=== PATIENT | female | born 1965 | race Caucasian/White ===

== ENCOUNTER 2017-11-12 09:45 | Observation (INO) | payer MEDICARE, MEDICAID, SELFPAY ==
[2017-11-12] VITALS (11 sets, daily range): BP systolic 114–154; BP diastolic 59–95; PULSE 62–78; RESP 12–18; TEMP 35.8–36.6; O2SAT 94–98; BMI 31.5
--- NOTE | 2017-11-12 | THYROID_PTH ---
PATIENT: KENDALL VARMA LOC: MS2 U#:[id number] AGE/SX: 51/F [place]OM[place] [facility] [id number] RE11/12/[address]: Dr. 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 MEREDITH:jyoti 11/12/17 MICROSCOPIC DIAGNOSIS Right lobe thyroid, lobectomy: Adenomatoid colloid nodule. Chronic inflammation. Parathyroid tissue. See comment. MEREDITH:jyoti 11/13/17 COMMENT Immunohistochemistry ([id number]) supports the above diagnosis. The parathyroid tissue measures 0.4 x 0.3 cm, measured microscopically and appears to be cellular. Please make reference to previous cytology ([id number]), right thyroid nodule, FNA with diagnosis of suspicious for follicular neoplasm. MICROSCOPIC DESCRIPTION Slides are reviewed. GROSS DESCRIPTION Received fresh for frozen section diagnosis labeled with the patient's name is a specimen designated right lobe thyroid. The specimen consists of a thyroid lobectomy specimen weighing 8.5 gm and measuring 3.5 x 3.5 x 2 cm. No external parathyroid tissue is identified. The specimen is inked as follows: anterior surface ? black, posterior surface ? blue, isthmus margin ? yellow. Serial sections reveal a round, solid nodule in the inferior portion of the thyroid lobe measuring 1.5 cm in diameter. A section for nodule with surrounding tissue is submitted for frozen section diagnosis. The entire specimen is submitted in six cassettes as follows: 1 ? frozen section, 2-6 ? rest of the specimen (2 containing most superior portion and 6 containing most inferior portion). / SJ:jyoti 11/12/17 TC:5 CPT: 89681, 82021
--- NOTE | 2017-11-12 | IMM_PTH ---
PATIENT: KENDALL VARMA LOC: MS2 U#:[id number] AGE/SX: 51/F ROOM: [facility] [id number] RE11/12/[address]: Dr. 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 Localization is made via biotin free immunoperoxidase method. Appropriate controls are performed and reacted as expected. Results on target cell population are indicated in the following table: RESULTS: ANTIBODY / CLONE RESULT CD56 (123C3.D5) positive, diffuse CK19 (A53-B/A2.26) negative HBME1 (HBME-1) positive, focal (incomplete membranous staining) GAL3 (9C4) negative These tests were developed and their performance characteristics determined by [facility]. They may not have been cleared or approved by the U.S. Food and Drug Administration. The FDA has determined that such clearance or approval is not necessary. INTERPRETATION: Right thyroid lobe: Consistent with adenomatoid colloid nodule. SJ:jyoti 11/14/17
[2017-11-12] MEDS: Clindamycin 900 MG/50 ML BAG 75 MG IV (09:20)
--- NOTE | 2017-11-12 11:37 | OP.PN_ITS ---
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
--- NOTE | 2017-11-12 11:43 | OP.PCM_ITS ---
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 Post-Operative Diagnosis: follicular neoplasm, not cancer by frozen section Surgery/Procedure Performed:: right thyroid lobectomy Description of Surgical Findings:: right thyroid lobectomy with thyroid nodule, pathology frozen section reveals that follicular neoplasm - not cancer combination window installer: Harjit Forman Type of Anesthesia:: General Anesthesiologist: Era Parrish Specimen's removed: right thyroid lobe Estimated Blood Loss (mL): < 10 ml Fluids Replaced: 1100 ml RL Description of Procedure: After informed consent was obtained, the patient was brought to the Operating Room and placed in the supine position. Appropriate time out protocol was followed. She was then placed under GETA. US was brought to the OR and a US was done to assess margins of the thyroid gland for an appropriate incision to be made. The patient was then positioned with arms tucked and appropriate padding, with neck extension, and in the slightly reverse Trendelenburg position. The neck and upper chest were then prepped with a sterile surgical skin preparation and appropriate sterile surgical drapes were placed. The landmarks were identified and a low cervical collar incision was made with a 15 blade scalpel and carried down to the subcutaneous tissues using Bovie in the electrocautery mode. The platysma was divided along the incision and then flaps were created superiorly to the cricoid cartilage level and inferiorly to the sternal notch. The fascia overlying the strap muscles was then divided along the midline. The right thyroid gland was thus approached.. The plane between the thyroid gland anterior and the strap muscles posteriorly was then bluntly dissected. Dissection continued layer by layer to identify the inferior pole vessels of the right thyroid gland were identified. The inferior pole vessels were identified and there was a nodular density in this area that was felt to be the inferior parathyroid gland and therefore dissection was done to carefully avoid any injury to it. The vessels were ligated with ligaclips and then transected. Of note, there was inflammatory adhesions to it thyroid lobe. The middle thyroid vein was identified and also ligated with the Harmonic scalpel and then transected. The inferior pole was then bluntly dissected free of the surrounding investiture. The right lobe of the thyroid thus could be retracted medially. Attention was then directed to the superior pole of the thyroid gland. The superior pole vessels were then ligated adjacent to the thyroid lobe in order to prevent damage to the superior laryngeal nerve. The parathyroid gland was identified and care was taken to preserve the blood supply to the parathyroid gland. The thyroid gland was appearing ischemic and shrunk in size and the gland could be further retracted medially. The recurrent laryngeal nerve was identified. It was carefully avoided in further dissection of the thyroid gland. It is of note that the thyroid appeared to have slight inflammation consistent with thyroiditis type presentation. Also was noted that the surrounding tissues appeared to be more adherent to the thyroid gland than usual. Once the thyroid tissue was free from the attachments to the trachea with the recurrent laryngeal nerve protected and dissection continued. Once the gland was entirely freed, it was then forwarded to pathology. A frozen section revealed a follicular neoplasm, but no cancer. Therefore, closure began. Hemostasis was carefully controlled with electrocoagulation. Surgicel was used for hemostasis. The fascia of the strap muscles was then reapproximated along the midline using Vicryl suture. The platysma muscle was then reapproximated in a transverse fashion using interrupted 2-0 Vicryl suture. The skin incision was then reapproximated using 4 -0 Monocryl in a running subcuticular fashion. The drain was brought out through the middle portion of the incision and sutured to the skin using nylon suture. The skin closure was reinforced using Cavilon and Steri-Strips and a sterile OpSite dressing was applied. Prior to extubation, a glide scope examination was done. The vocal cords were noted to adduct bilaterally. The patient was then extubated. She was brought to the Recovery Room in stable condition. She was able to phonate the letter E without difficulty. Patient tolerated procedure well. - Complications none noted - Admit VTE Documentation VTE Present on Admission: Yes VTE Mechan Device Prophylaxis: SCD's
--- NOTE | 2017-11-12 16:45 | PCM.DC.GB ---
Discharge Diet: No Restrictions Discharge Activity: Return to Normal Activity, May not drive while taking narcotic pain medications. Call your doctor if your incision/area has: Continuous Slow Oozing, Foul Smelling Discharge Call your doctor if you observe: Fever of 101 or Higher Additional Dressing/Incision Instructions:: Leave dressing in place. May get wet in shower Allergies/Adverse Reactions: Allergies amitriptyline Adverse Reaction (Verified 11/05/17 12:56) Other SHAKES Medications to take at Discharge Doxylamine Succinate [Unisom] 25 mg PO QHS PRN 11/05/17 Naproxen Sodium [Aleve] 220 mg PO Q12H PRN PRN 11/05/17 Oxycodone [Oxyir] 5 mg PO Q6H PRN PRN 5 Days #20 tab 11/12/17 The following prescriptions were given: Oxycodone [Oxyir] 5 mg PO Q6H PRN PRN 5 Days #20 tab PRN Reason: Mod-Severe Pain (4-10/10) Primary Care Physician: Tara Morales NP-C [Primary Care Provider] - Please Follow Up With: Lakesha Fu MD - call When: to be seen next week, please call for date and time, thank you
[2017-11-12] MEDS: Lactated Ringers 1,000 ML 75 ML IV (17:08)
[2017-11-12] MEDS: 0.9% NaCl Peripheral Flush Adult/Peds IV (17:16)
[2017-11-12] MEDS: Ondansetron 4 MG/2 ML Vial IV (17:16)
[2017-11-12] MEDS: Morphine 4 MG/ML Syringe IV (17:16)
[2017-11-12] MEDS: HYDROcodone Bitartrate/Apap 5/325 Tablet PO (20:50)
[2017-11-13 02:45] VITALS: BP 129/82; PULSE 69; RESP 16; TEMP 36.7; O2SAT 94
[2017-11-13] MEDS: HYDROcodone Bitartrate/Apap 5/325 Tablet PO ×2 (02:50→08:38)
[2017-11-13] MEDS: Ondansetron 4 MG/2 ML Vial IV (02:53)
--- NOTE | 2017-11-13 06:52 | PCM.DC.GS ---
Discharge Diet: No Restrictions Discharge Activity: Return to Normal Activity, May not drive while taking narcotic pain medications. Call your doctor if your incision/area has: Continuous Slow Oozing, Foul Smelling Discharge Call your doctor if you observe: Fever of 101 or Higher Additional Dressing/Incision Instructions:: Leave dressing in place. May get wet in shower Allergies/Adverse Reactions: Allergies amitriptyline Adverse Reaction (Verified 11/05/17 12:56) Other SHAKES Medications to take at Discharge Doxylamine Succinate [Unisom] 25 mg PO QHS PRN 11/05/17 Naproxen Sodium [Aleve] 220 mg PO Q12H PRN PRN 11/05/17 Oxycodone [Oxyir] 5 mg PO Q6H PRN PRN 5 Days #20 tab 11/12/17 proMETHazine tablet [Phenergan tablet] 25 mg PO Q6H PRN PRN 1 Days #4 tab 11/13/17 The following prescriptions were given: Oxycodone [Oxyir] 5 mg PO Q6H PRN PRN 5 Days #20 tab PRN Reason: Mod-Severe Pain (4-10/10) proMETHazine tablet [Phenergan tablet] 25 mg PO Q6H PRN PRN 1 Days #4 tab PRN Reason: Nausea/Vomiting Primary Care Physician: Tara Morales NP-C [Primary Care Provider] - Please Follow Up With: Lakesha Fu MD - call When: to be seen next week, please call for date and time, thank you
[2017-11-13 06:59] LABS: Calcium,Total 9.3 mg/dL (8.5-10.1)
[2017-11-13 08:21] VITALS: BP 127/86; PULSE 65; RESP 18; TEMP 36.8; O2SAT 97
[2017-11-13 08:23] VITALS: BP 127/86; PULSE 64; RESP 18; TEMP 36.8; O2SAT 97
--- NOTE | 2017-11-15 11:48 | HP.PCM_ITS ---
History and Physical Date of Admission: 11/12/17 Edith Smith : 1965 ? REFERRING PHYSICIAN: Lakesha Fu MD ? CHIEF COMPLAINT: Thyroid nodule right - follicular neoplasm ? HPI: Edith is a 51 y/o WF who had presented previously with right thyroid nodule for which FNA findings 05/18/17 Follicular cells and H?rthle cells noted. Suspicious for follicular neoplasm. She was undergoing treatment for left breast cancer with chemotherapy and therefore thyroid surgery was postponed. I have counseled patient for right thyroid lobectomy, possible total thyroidectomy, patient states that she wants to discuss this with Dr. Hussain vale. ? PAST MEDICAL HISTORY Anxiety ? Breast cancer (HCC) 2017 Fibromyalgia ? Panic attacks ? Rheumatoid arthritis (HCC) ? PAST SURGICAL HISTORY BREAST LUMPECTOMY HX Left 2017 ? with sentinel lymph node biopsy PAST SURGICAL HISTORY OF ? ? ? Appendectomy at age 11 PAST SURGICAL HISTORY OF ? 03/07/1984 ? PAST SURGICAL HISTORY OF ? 03/04/1987 ? PAST SURGICAL HISTORY OF ? 03/04/1987 ? Tubal ligation PAST SURGICAL HISTORY OF ? ? ? Hysterectomy 2010 PAST SURGICAL HISTORY OF ? ? ? Hernia repair - 2015 THYROID RIGHT FINE NEEDLE ASPIRATION ? 05/2017 ? Current Outpatient Prescriptions: traMADol (ULTRAM) 50 mg tablet Take 1 tablet by mouth every 6 hours as needed for up to 7 days. traZODone (DESYREL) 50 mg tablet Take 100 mg by mouth daily at bedtime. levoFLOXacin (LEVAQUIN) 500 mg tablet Take 1 tablet by mouth once daily. promethazine (PHENERGAN) 25 mg tablet Take 1 tablet by mouth every 6 hours as needed. FOR NAUSEA potassium chloride ER (K-DUR, KLOR-CON) 20 mEq tablet Take 1 tablet by mouth once daily. ondansetron (ZOFRAN) 8 mg tablet Take 1 tablet by mouth every 8 hours as needed for Nausea/Vomiting. Indications: CANCER CHEMOTHERAPY-INDUCED NAUSEA AND VOMITING escitalopram oxalate (LEXAPRO) 10 mg tablet Take 10 mg by mouth once daily. ibuprofen (MOTRIN) 800 mg tablet Take 800 mg by mouth twice daily as needed. diphenhydrAMINE (BENADRYL) 25 mg capsule Take 25 mg by mouth as needed. ? ALLERGIES: Elavil [Amitriptyline Hcl] ? PERSONAL HISTORY: Social History Marital status: Single : Occupational History Occupation Employer Comment Disability RA Social History Main Topics Smoking status: Former Smoker Packs/day: 1.00 Years: 30.00 Types: Cigarettes Quit date: 12/01/2015 Smokeless status: Never Used Alcohol use: No Drug use: No Comment: daily FAMILY HISTORY Other [OTHER] Mother ? ? ? No known hx, not aware of where Mom is Diabetes Father ? Hypertension Father ? Stomach Cancer [OTHER] Father 77 Other [OTHER] Father ? ? ? Brain tumor Other [OTHER] Sister ? ? ? Brain tumor ? ? REVIEW OF SYSTEMS: General: The patient NOTES fatigue, denies weight loss, denies weight gain, denies feeling hot, and denies feelings of cold. Eyes: The patient denies glaucoma, denies eye injury/surgery, wears glasses or contacts. Ear/Nose/Throat: The patient denies allergies, NOTES hayfever, denies ear infections, and denies bloody noses. Cardiovascular: The patient denies chest pain, denies heart disease, denies high blood pressure,denies cardiac stent, denies prior heart attack, denies irregular heart beat, denies high cholesterol, denies poor circulation, denies heart failure, other cardiac issues, NOTES claudication, denies cold feet , denies peripheral arterial stent. Respiratory: The patient denies tuberculosis, denies pneumonia, denies frequent cough, denies pulmonary embolism, NOTES shortness of breath, and denies coughing up blood. Gastrointestinal: The patient denies difficulty swallowing, denies acid reflux, denies ulcers, denies vomiting, denies jaundice/hepatitis, denies gallbladder problems, denies black or tarry stools, denies hemorrhoids, denies bleeding from rectum, denies diverticulitis, NOTES constipation, denies diarrhea , denies loss of stool control, and denies hernias. Kidney/Bladder: The patient denies kidney stones, denies urine infections , and denies bloody urine. Skin: The patient denies a history of skin cancer, denies bleeding/ changing moles, and denies a history of skin rash. Neurologic: The patient denies a history of epilepsy/convulsions, denies headaches, denies head/spinal injuries, and denies stroke/TIA. Psychiatric: The patient denies psychiatric medications, NOTES depression , and denies voices, denies substance abuse. Endocrine: The patient denies thyroid disorders, denies diabetes, and denies hormonal problems. Hematologic: The patient denies a history of bruising, denies bleeding, and denies anemia, denies blood clots. Infections: The patient NOTES a history of measles and mumps, denies rheumatic fever, and denies sexually transmitted diseases. Musculoskeletal: The patient NOTES back pain/injury, denies back problems , denies sciatica, denies knee/foot trouble, NOTES arthritis, or denies gout. PHYSICAL EXAMINATION: General: The patient is 51 year old female, well nourished, well hydrated in no acute distress. The patient is oriented to time, place, and person. VITALS: Blood pressure 120/84, pulse 76, weight 97.5 kg (215 lb). Body mass index is 31.84 kg/(m^2). Head Normocephalic. EOM intact with sclera clear and no icterus noted. Mouth with mucus membranes moist. Poor dentition Neck - supple with no jugular venous distention noted. Trachea is midline. No carotid bruits noted. Slight thyroid enlargement but no palpable thyroid nodules detected. No masses noted. Lungs clear to auscultation Normal breath sounds No rales/rhonchi/wheezing noted. No labored breathing noted, such as retractions. Heart normal S1 and S2 auscultated. No rubs/clicks/murmurs noted. Regular rate. Abdomen soft and benign. Normal bowel sounds Extremities no calf tenderness noted. Skin normal skin integrity. Lymph no cervical adenopathy detected, no supraclavicular adenopathy detected, no axillary adenopathy detected Neurological gait normal, no focal deficits noted Psych calm and appropriate ? IMPRESSION: right thyroid nodule - Hurthle cell ? PLAN: I have discussed the above with the patient. I have offered right thyroid lobectomy with frozen section, possible total thyroidectomy. I have explained the procedure to the patient. I have counseled the patient as to the risks of the procedure, including but not limited to: infection, bleeding, injury to any blood vessels/nerves, scar tissue, injury to the parathyroid glands and their sequelae, injury to the recurrent laryngeal nerves and their sequelae, seroma, wound infections, cosmetic deformity, complications of anesthesia, etc. the patient understands. The patient wishes to proceed. ?I have answered all questions to the patients satisfaction and the patient has no further questions. . Diagnoses: (E04.1) Right thyroid nodule (primary encounter diagnosis) (Z85.3) History of left breast cancer (D49.7) Follicular neoplasm of thyroid ? Lakesha Fu MD
== END 2017-11-13 09:03 | disposition home or self-care (01) ==
LOC: MS2 11-13 02:03 → SDC 11-13 09:48
PROVIDERS: Admitting Provider Surgery; Family Provider Nurse Practitioner Family; PCP Nurse Practitioner Family; Visit Provider Surgery
PROC: (CPT 60220; principal; 2017-11-12 08:45)
DX: D34 Benign neoplasm of thyroid gland (principal); Z87.891 Personal history of nicotine dependence; E78.00 Pure hypercholesterolemia, unspecified; F41.9 Anxiety disorder, unspecified; Z85.3 Personal history of malignant neoplasm of breast; M79.7 Fibromyalgia; M06.9 Rheumatoid arthritis, unspecified; Z92.21 Personal history of antineoplastic chemotherapy
CPT/HCPCS: 00320; 60220; 36415; 82310; 88307; 88331; 88341; 88342; 96361; 96374; 96375; 96376; 99218; J7120; A4216; G0378; G0379; J2405

== ENCOUNTER → 2018-12-30 | Outpatient (CLI) | payer MEDICARE, MEDICAID, SELFPAY ==
--- NOTE | 2018-12-30 06:48 | CT_ITS ---
STUDY: CT ABDOMEN WITH CONTRAST REASON FOR EXAM: Female, 53 years old. Abnormal ultrasound, history of left breast cancer RADIATION DOSAGE (If Supplied By Facility): CTDIvol = ( 23.02 ) mGy, DLP = ( 2105.02 ) mGycm TECHNIQUE: Transaxial images were obtained post I.V. administration of 100mL IV Isovue 300, and without oral contrast. Sagittal and coronal images were reconstructed. Individualized dose optimization techniques were used for this CT. COMPARISON: None. FINDINGS: The visualized lung bases are unremarkable. The visualized portions of the heart are within normal limits. Normal liver. Normal gallbladder and extrahepatic biliary system. Normal spleen. There is an adjacent subcentimeter splenule. Normal pancreas. Normal bilateral adrenal glands. Normal right kidney. Normal left kidney. Surgical clips are seen in the region of the GE junction. Normal small intestine. Normal colon. There is non-visualization of the appendix. Normal abdominal aorta. Normal inferior vena cava. Normal retroperitoneum. There is a small umbilical hernia containing fat. There are degenerative changes of the visualized thoracolumbar spine. CT/Abdomen WITH IV Contrast IMPRESSION: 1. Surgical clips seen in the region of the GE junction. 2. Small fat-containing umbilical hernia. 3. Degenerative changes of the visualized thoracolumbar spine. 4. The liver is unremarkable. Electronically Signed: Matt Rojo MD at 16:57 EDT , Service support ,
== END | disposition home or self-care (01) ==
PROVIDERS: Family Provider Nurse Practitioner Family; PCP Nurse Practitioner Family; Referring Provider Nurse Practitioner Family; Visit Provider Nurse Practitioner Family
DX: R74.8 Abnormal levels of other serum enzymes (principal); C50.919 Malignant neoplasm of unspecified site of unspecified female breast; C73 Malignant neoplasm of thyroid gland
CPT/HCPCS: 74160; Q9967

== ENCOUNTER → 2019-04-09 | Outpatient (CLI) | payer MEDICARE, MEDICAID, SELFPAY ==
[2019-04-09 11:06] VITALS: BMI 31.6
--- NOTE | 2019-04-09 11:13 | RAD_ITS ---
STUDY: X-RAY - LEFT KNEE REASON FOR EXAM: Female, 53 years old. Severe pain TECHNIQUE: 3 view(s) of the knee. COMPARISON: None. FINDINGS: Studies of the left knee in 3 projections was performed and shows avulsion fractures off of the medial femoral condyle. A severely depressed comminuted fracture noted involving the lateral tibial plateau. The patella appears to be well situated. RAD/Knee 1 or 2 Views IMPRESSION: 1. Avulsion fractures are noted off of the medial femoral condyle. 2. A depressed comminuted fracture noted of the lateral tibial plateau. Electronically Signed: Miquel Shrestha, at 13:35 EDT Tel , Service support ,
== END | disposition home or self-care (01) ==
LOC: HPRAD 11:13
PROVIDERS: Family Provider Nurse Practitioner Family; PCP Nurse Practitioner Family; Referring Provider Orthopaedic Surgery; Visit Provider Orthopaedic Surgery
DX: S82.202A Unspecified fracture of shaft of left tibia, initial encounter for closed fracture (principal)
CPT/HCPCS: 73560

== ENCOUNTER → 2019-04-18 | Outpatient (CLI) | payer MEDICARE, MEDICAID, SELFPAY ==
[2019-04-18 09:59] VITALS: BMI 31.6
--- NOTE | 2019-04-18 11:01 | CT_ITS ---
STUDY: CT LEFT KNEE/LOWER LEG WITHOUT CONTRAST REASON FOR EXAM: Displaced lateral fracture 03/24/2019. TECHNIQUE: Transaxial CT imaging of the knee was performed. Coronal and sagittal images were reformatted. Individualized dose optimization techniques were used for this CT. COMPARISON: Radiographs 04/09/2019. FINDINGS: There are avulsion fractures of the medial femoral condyle near the origin of the medial collateral ligament (coronal reconstructions 27-30; axial images 17-24). There is a small fracture of the posterior mesial aspect of the medial tibial plateau, likely involving the attachment of the posterior cruciate ligament (coronal reconstructions 40, 41; sagittal reconstructions 43-45). There is preservation of the articular joint space of the medial knee compartment. There is a comminuted lateral tibial plateau fracture with maximal depression of 1.2 cm (coronal reconstructions 25-37; sagittal reconstructions 50-61). Normal proximal tibiofibular articulation. There is a minimal volume of fluid in the knee joint. The visualized distal quadriceps tendon is grossly normal. The patellar tendon is grossly normal. Normal Hoffa's fat pad. Normal fibula, tibial diaphysis and distal tibia. There is soft tissue swelling in the lateral and medial subcutis space. CT/Extremity Lower without Contra IMPRESSION: Depressed fracture of the lateral tibial plateau. Small fracture of the posterior mesial aspect of the medial tibial plateau. Avulsion fractures of the medial femoral condyle. Electronically Signed: Jasbir Jean MD at 13:46 EDT Tel , Service support ,
== END | disposition home or self-care (01) ==
LOC: CT 10:38
PROVIDERS: Family Provider Nurse Practitioner Family; PCP Nurse Practitioner Family; Referring Provider Orthopaedic Surgery; Visit Provider Orthopaedic Surgery
DX: S82.122A Displaced fracture of lateral condyle of left tibia, initial encounter for closed fracture (principal)
CPT/HCPCS: 73700